=== PATIENT | female | born 1975 | race African-American/Black ===

== ENCOUNTER 2023-03-31 14:24 | Emergency (ER) | payer SELFPAY ==
[2023-03-31] MEDS ORDERED: Morphine 4 MG/ML VIAL ONE (15:38)
== END 2023-03-31 16:43 | disposition home or self-care (01) ==
LOC: ERS 14:24
DX: S52.122A Displaced fracture of head of left radius, initial encounter for closed fracture (principal); S52.002A Unspecified fracture of upper end of left ulna, initial encounter for closed fracture; I10 Essential (primary) hypertension; W18.39XA Other fall on same level, initial encounter
CPT/HCPCS: 29105; 96372; J2270